=== PATIENT | male | born 1990 | race Caucasian/White ===

== ENCOUNTER 2017-08-04 12:09 | Emergency (ER) | payer OTHER ==
[~2017-08-04] VITALS: Ht 167.6 cm; Wt 77.1 kg
[2017-08-04 12:21] VITALS: Ht 167.6 cm; Wt 77.1 kg
[2017-08-04 13:29] VITALS: BP 127/79
== END 2017-08-04 13:29 | disposition home or self-care (01) ==
LOC: ED 12:09
DX: J02.9 Acute pharyngitis, unspecified (principal); R13.10 Dysphagia, unspecified